=== PATIENT | male | born 1990 | race Caucasian/White ===

== ENCOUNTER 2018-02-20 08:56 | Observation (INO) | payer BC ==
[2018-02-20] MEDS ORDERED: Diphtheria,Pertussis(Acell),Tetanus Vaccine 0.5 ML Syringe IM ONE (09:10)
--- NOTE | 2018-02-20 09:13 | EDM.PDOC ---
ED HPI GENERAL MEDICAL PROBLEM - General Chief Complaint: General Stated Complaint: FELL DOWN STEPS Time Seen by Provider: 02/20/18 09:10 Source of Information: Reports: Patient - History of Present Illness INITIAL COMMENTS - FREE TEXT/NARRATIVE: HISTORY AND PHYSICAL: History of present illness: []Patient presents with history of falling downstairs per patient at 9 PM last night However his only injuries the right eye moderate swelling with laceration in the brow After being here in the ER patient complaining of left kidney pain he has history of defect as a child surgical repair, he now complains more of the left kidney pain them of the right eye pain No fever nausea vomiting chills sweats no chest pain shortness breath headache dizziness palpitation no bowel or urine symptoms denies loss of consciousness Review of systems: As per history of present illness and below otherwise all systems reviewed and negative. Past medical history: As per history of present illness and as reviewed below otherwise noncontributory. Surgical history: As per history of present illness and as reviewed below otherwise noncontributory. Social history: No reported history of drug or alcohol abuse. Family history: As per history of present illness and as reviewed below otherwise noncontributory. Physical exam: HEENT: Atraumatic, normocephalic, pupils reactive, negative for conjunctival pallor or scleral icterus, mucous membranes moist, throat clear, neck supple, nontender, trachea midline. Moderate swelling right eye and cheek area 2.5 cm linear laceration in the right brow Lungs: Clear to auscultation, breath sounds equal bilaterally, chest nontender. Heart: S1S2, regular, negative for clicks, rubs, or JVD. Abdomen: Soft, nondistended, nontender. Negative for masses or hepatosplenomegaly. Negative for costovertebral tenderness. Pelvis: Stable nontender. Genitourinary: Deferred. Rectal: Deferred. Extremities: Atraumatic, negative for cords or calf pain. Neurovascular unremarkable. Neuro: Awake, alert, oriented. Cranial nerves II through XII unremarkable. Cerebellum unremarkable. Motor and sensory unremarkable throughout. Exam nonfocal. Diagnostics: [Head CT, cervical CT, maxillofacial CT no contrast Chest 1 view pelvis 1 view pLane films UA , CBC CMP INR Retroperitoneal ultrasound Therapeutics: []tdap Morphine 2 mg IV 2 1 g of Rocephin IV Absence discussed patient with Dr. Boss, he will see the patient on Wednesday after swelling has gone down, the patient's call tomorrow and schedule the appointment with his office, Dr. Boss will then make arrangements accordingly if maxillofacial is further required. admitted for observation and pain control Impression: Flank pain//intractable pain [ contusion /hematoma right eye Superficial laceration 2.5 cm no sutures required Inferior orbital rim comminuted fracture Probable concussion ] Definitive disposition and diagnosis as appropriate pending reevaluation and review of above. Right Eye Pain Score (Numeric/FACES): 8 - Related Data Allergies Allergy/AdvReac Type Severity Reaction Status Date / Time No Known Allergies Allergy Verified 02/20/18 09:23 Home Meds: Home Meds . [No Known Home Meds] 02/20/18 [History] ED ROS GENERAL - Review of Systems Review Of Systems: See Below ED EXAM, GENERAL - Physical Exam Exam: See Below Course - Vital Signs Last Recorded V/S: Last Vital Signs Temp 98.8 F 02/20/18 09:04 Pulse 77 02/20/18 14:21 Resp 21 H 02/20/18 11:34 BP 136/75 02/20/18 14:21 Pulse Ox 98 02/20/18 11:34 - Orders/Labs/Meds Orders: Active Orders 24 hr Category Date Time Status Vaccines to be Administered [RC] PER UNIT ROUTINE Care 02/20/18 09:10 Active Abdomen Pelvis w Cont [CT] Stat Exams 02/20/18 13:09 Taken Cervical Spine wo Cont [CT] Stat Exams 02/20/18 09:09 Taken Chest 1V Frontal [CR] Stat Exams 02/20/18 09:09 Taken Head wo Cont [CT] Stat Exams 02/20/18 09:09 Taken Maxillofacial w/o CM [Max Facial Sinus wo Cont] [CT] Exams 02/20/18 09:10 Taken Stat Pelvis 1V or 2V [CR] Stat Exams 02/20/18 09:10 Taken Retroperitoneal Ltd [US] Stat Exams 02/20/18 11:27 Taken Labs: Laboratory Tests 02/20/18 02/20/18 02/20/18 Range/Units 09:37 10:05 10:05 WBC 10.31 (4.0-11.0) K/uL RBC 4.62 (4.50-5.90) M/uL Hgb 14.4 (13.0-17.0) g/dL Hct 40.6 (38.0-50.0) % MCV 87.9 (80.0-98.0) fL MCH 31.2 (27.0-32.0) pg MCHC 35.5 (31.0-37.0) g/dL RDW Std Deviation 40.3 (28.0-62.0) fl RDW Coeff of Li 13 (11.0-15.0) % Plt Count 269 (150-400) K/uL MPV 9.90 (7.40-12.00) fL Neut % (Auto) 80.7 H (48.0-80.0) % Lymph % (Auto) 13.0 L (16.0-40.0) % [place] % (Auto) 6.2 (0.0-15.0) % Eos % (Auto) 0.0 (0.0-7.0) % Baso % (Auto) 0.1 (0.0-1.5) % Neut # (Auto) 8.3 H (1.4-5.7) K/uL Lymph # (Auto) 1.3 (0.6-2.4) K/uL [place] # (Auto) 0.6 (0.0-0.8) K/uL Eos # (Auto) 0.0 (0.0-0.7) K/uL Baso # (Auto) 0.0 (0.0-0.1) K/uL Nucleated RBC % 0.0 /100WBC Nucleated RBCs # 0 K/uL INR 1.04 Sodium (136-148) mmol/L Potassium (3.5-5.1) mmol/L Chloride (98-107) mmol/L Carbon Dioxide (21.0-32.0) mmol/L BUN (7.0-18.0) mg/dL Creatinine (0.8-1.3) mg/dL Est Cr Clr Drug Dosing mL/min Estimated GFR (MDRD) ml/min Glucose (74-106) mg/dL Calcium (8.5-10.1) mg/dL Total Bilirubin (0.2-1.0) mg/dL AST (15-37) IU/L ALT (14-63) IU/L Alkaline Phosphatase (46-116) U/L Total Protein (6.4-8.2) g/dL Albumin (3.4-5.0) g/dL Globulin (2.0-3.5) g/dL Albumin/Globulin Ratio (1.3-2.8) Urine Color YELLOW Urine Appearance CLEAR Urine pH 8.5 H (5.0-8.0) Ur Specific [place] 1.020 (1.001-1.035) Urine Protein NEGATIVE (NEGATIVE) mg/dL Urine Glucose (UA) NEGATIVE (NEGATIVE) mg/dL Urine Ketones NEGATIVE (NEGATIVE) mg/dL Urine Occult Blood NEGATIVE (NEGATIVE) Urine Nitrite NEGATIVE (NEGATIVE) Urine Bilirubin NEGATIVE (NEGATIVE) Urine Urobilinogen 0.2 (<2.0) EU/dL Ur Leukocyte Esterase NEGATIVE (NEGATIVE) Urine RBC NONE SEEN (0-2/HPF) Urine WBC NONE SEEN (0-5/HPF) Ur Epithelial Cells RARE (NONE-FEW) Urine Bacteria NOT SEEN (NEGATIVE) 02/20/18 Range/Units 10:05 WBC (4.0-11.0) K/uL RBC (4.50-5.90) M/uL Hgb (13.0-17.0) g/dL Hct (38.0-50.0) % MCV (80.0-98.0) fL MCH (27.0-32.0) pg MCHC (31.0-37.0) g/dL RDW Std Deviation (28.0-62.0) fl RDW Coeff of Li (11.0-15.0) % Plt Count (150-400) K/uL MPV (7.40-12.00) fL Neut % (Auto) (48.0-80.0) % Lymph % (Auto) (16.0-40.0) % [place] % (Auto) (0.0-15.0) % Eos % (Auto) (0.0-7.0) % Baso % (Auto) (0.0-1.5) % Neut # (Auto) (1.4-5.7) K/uL Lymph # (Auto) (0.6-2.4) K/uL [place] # (Auto) (0.0-0.8) K/uL Eos # (Auto) (0.0-0.7) K/uL Baso # (Auto) (0.0-0.1) K/uL Nucleated RBC % /100WBC Nucleated RBCs # K/uL INR Sodium 141 (136-148) mmol/L Potassium 4.0 (3.5-5.1) mmol/L Chloride 106 (98-107) mmol/L Carbon Dioxide 26.6 (21.0-32.0) mmol/L BUN 11 (7.0-18.0) mg/dL Creatinine 0.9 (0.8-1.3) mg/dL Est Cr Clr Drug Dosing 140.56 mL/min Estimated GFR (MDRD) > 60.0 ml/min Glucose 115 H (74-106) mg/dL Calcium 8.9 (8.5-10.1) mg/dL Total Bilirubin 0.5 (0.2-1.0) mg/dL AST 34 (15-37) IU/L ALT 44 (14-63) IU/L Alkaline Phosphatase 56 (46-116) U/L Total Protein 7.2 (6.4-8.2) g/dL Albumin 4.2 (3.4-5.0) g/dL Globulin 3.0 (2.0-3.5) g/dL Albumin/Globulin Ratio 1.4 (1.3-2.8) Urine Color Urine Appearance Urine pH (5.0-8.0) Ur Specific [place] (1.001-1.035) Urine Protein (NEGATIVE) mg/dL Urine Glucose (UA) (NEGATIVE) mg/dL Urine Ketones (NEGATIVE) mg/dL Urine Occult Blood (NEGATIVE) Urine Nitrite (NEGATIVE) Urine Bilirubin (NEGATIVE) Urine Urobilinogen (<2.0) EU/dL Ur Leukocyte Esterase (NEGATIVE) Urine RBC (0-2/HPF) Urine WBC (0-5/HPF) Ur Epithelial Cells (NONE-FEW) Urine Bacteria (NEGATIVE) Meds: Medications Discontinued Medications Generic Name Dose Route Start Last Admin Trade Name Freq PRN Reason Stop Dose Admin Diphtheria/Tetanus/Acell Pertussis 0.5 ml 02/20/18 09:10 02/20/18 10:19 Adacel IM 02/20/18 09:11 0.5 ml .ONCE ONE Administration Hydromorphone HCl 1 mg 02/20/18 13:56 02/20/18 14:08 Dilaudid IVPUSH 02/20/18 13:57 1 mg ONETIME ONE Administration Ceftriaxone Sodium 1,000 mg/ 4 mls @ 4 mls/sec 02/20/18 11:51 02/20/18 12:22 Lidocaine HCl IM 02/20/18 11:52 4 mls/sec ONETIME ONE Administration Iopamidol 100 ml 02/20/18 13:47 02/20/18 13:48 Isovue Multipack-370 (76%) IVPUSH 02/20/18 13:48 100 ml ONETIME ONE Administration Morphine Sulfate 2 mg 02/20/18 10:23 02/20/18 10:34 Morphine IVPUSH 02/20/18 10:24 2 mg ONETIME ONE Administration Morphine Sulfate 2 mg 02/20/18 11:27 02/20/18 11:32 Morphine IVPUSH 02/20/18 11:28 2 mg ONETIME ONE Administration Ondansetron HCl 8 mg 02/20/18 10:03 02/20/18 10:19 Zofran IVPUSH 02/20/18 10:04 8 mg ONETIME ONE Administration Ondansetron HCl Confirm 02/20/18 10:13 02/20/18 10:21 Zofran Administered 02/20/18 10:14 Not Given Dose 4 mg .ROUTE .STK-MED ONE Departure - Departure Time of Disposition: 15:15 Disposition: Refer to Observation Condition: Fair Clinical Impression: Flank pain - Discharge Information Referrals: PCP,None [Primary Care Provider] - Forms: ED Department Discharge - My Orders Last 24 Hours: My Active Orders 02/20/18 09:09 Cervical Spine wo Cont [CT] Stat Chest 1V Frontal [CR] Stat Head wo Cont [CT] Stat 02/20/18 09:10 Vaccines to be Administered [RC] PER UNIT ROUTINE Maxillofacial w/o CM [Max Facial Sinus wo Cont] [CT] Stat Pelvis 1V or 2V [CR] Stat 02/20/18 11:27 Retroperitoneal Ltd [US] Stat 02/20/18 13:09 Abdomen Pelvis w Cont [CT] Stat - Assessment/Plan Last 24 Hours: My Active Orders 02/20/18 09:09 Cervical Spine wo Cont [CT] Stat Chest 1V Frontal [CR] Stat Head wo Cont [CT] Stat 02/20/18 09:10 Vaccines to be Administered [RC] PER UNIT ROUTINE Maxillofacial w/o CM [Max Facial Sinus wo Cont] [CT] Stat Pelvis 1V or 2V [CR] Stat 02/20/18 11:27 Retroperitoneal Ltd [US] Stat 02/20/18 13:09 Abdomen Pelvis w Cont [CT] Stat
[2018-02-20] MEDS ORDERED: Ondansetron 4 MG/2 ML SDV IVPUSH ONE (10:03)
[2018-02-20] MEDS ORDERED: Ondansetron 4 MG/2 ML SDV ONE (10:13)
[2018-02-20] MEDS ORDERED: Morphine 2 MG/ML Syringe IVPUSH ONE ×2 (10:23→11:27)
[2018-02-20 10:33] LABS: CHLORIDE,CL 106 mmol/L (98-107); SODIUM,NA 141 mmol/L (136-148)
[2018-02-20] MEDS ORDERED: cefTRIAXone 1,000 MG in Lidocaine 1% 4 ML IM ONE (11:51)
[2018-02-20] MEDS ORDERED: Iopamidol 755 MG/ML 200 ML Multipack Bottle IVPUSH ONE (13:47)
[2018-02-20] MEDS ORDERED: HYDROmorphone 2 MG/ML SDV IVPUSH ONE (13:56)
[2018-02-20] MEDS ORDERED: Docusate Sodium 100 MG Cap PO PRN (15:34)
[2018-02-20] MEDS ORDERED: Temazepam 15 MG Cap PO PRN (15:34)
[2018-02-20] MEDS ORDERED: Morphine 10 MG/ML Syringe IVPUSH PRN (15:34)
[2018-02-20] MEDS ORDERED: Ketorolac 30 MG/ML SDV IV PRN (15:34)
[2018-02-20] MEDS ORDERED: Polyethylene Glycol 3350 Powder 17 GM Packet PO PRN (15:34)
--- NOTE | 2018-02-20 16:01 | PCM.HP ---
<Bennie VargheseKadeem - Last Filed: 02/20/18 16:15> H&P History of Present Illness - General Date of Service: 02/20/18 Admit Problem/Dx: Admission Diagnosis/Problem Admission Diagnosis/Problem Intractable pain - History of Present Illness Initial Comments - Free Text/Narative: Cedric Green is a 27 y/o male with history of left kidney surgery who presented to the ER for left flank pain and right facial pain. The patient states he fell from stairs around 9pm. He denies getting punched. He rates the left flank pain as 10/10, somewhat improved with IV pain meds. He also has a right orbital hematoma. No intracranial bleeding. Denies any blurry vision, chest pain, dyspnea, abdominal pain. No dysuria. No pain anywhere else except for face and left flank area. CT facial shows the followin. Acute complete comminuted displaced fracture of the inferior right orbital rim. Two fracture fragments appear to be inferiorly displaced. 2. Possible entrapment of the rectus inferior muscle. Ophthalmologic evaluation is strongly recommended. 3. No other fractures are confidently identified. 4. Blood in the superior right maxillary sinus about the fracture. Large right facial hematoma in a periorbital and infraorbital distribution. Please note that all CT scans at this facility use dose modulation, iterative reconstruction, and/or weight-based dosing when appropriate to reduce radiation dose to as low as reasonably achievable. Patient was admitted for intractable pain needing IV pain medication. Right Eye Pain Score (Numeric/FACES): 8 - Related Data Allergies/Adverse Reactions: Allergies Allergy/AdvReac Type Severity Reaction Status Date / Time No Known Allergies Allergy Verified 02/20/18 09:23 Home Medications: Home Meds . 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 Exam - Exam Exam: See Below - Vital Signs Vital Signs: Last Vital Signs Temp 37.1 C 02/20/18 09:04 Pulse 77 02/20/18 14:21 Resp 21 H 02/20/18 11:34 BP 136/75 02/20/18 14:21 Pulse Ox 98 02/20/18 11:34 Weight: 210 kg - Exam General: Alert, Oriented HEENT: Other (large right periorbital hematoma. ) Lungs: Clear to Auscultation, Normal Respiratory Effort. No: Crackles, Wheezing Cardiovascular: Regular Rate, Regular Rhythm GI/Abdominal Exam: Normal Bowel Sounds, Soft, Non-Tender, No Distention Back Exam: CVA Tenderness (L) Extremities: Normal Inspection, Non-Tender, No Pedal Edema Skin: Warm, Dry Neurological: Cranial Nerves Intact, Other (unable to fully open right eyelids due to swelling.) - Patient Data Lab Results Last 24 hrs: Laboratory Results - last 24 hr 02/20/18 02/20/18 02/20/18 Range/Units 09:37 10:05 10:05 WBC 10.31 (4.0-11.0) K/uL RBC 4.62 (4.50-5.90) M/uL Hgb 14.4 (13.0-17.0) g/dL Hct 40.6 (38.0-50.0) % MCV 87.9 (80.0-98.0) fL MCH 31.2 (27.0-32.0) pg MCHC 35.5 (31.0-37.0) g/dL RDW Std Deviation 40.3 (28.0-62.0) fl RDW Coeff of Li 13 (11.0-15.0) % Plt Count 269 (150-400) K/uL MPV 9.90 (7.40-12.00) fL Neut % (Auto) 80.7 H (48.0-80.0) % Lymph % (Auto) 13.0 L (16.0-40.0) % [place] % (Auto) 6.2 (0.0-15.0) % Eos % (Auto) 0.0 (0.0-7.0) % Baso % (Auto) 0.1 (0.0-1.5) % Neut # (Auto) 8.3 H (1.4-5.7) K/uL Lymph # (Auto) 1.3 (0.6-2.4) K/uL [place] # (Auto) 0.6 (0.0-0.8) K/uL Eos # (Auto) 0.0 (0.0-0.7) K/uL Baso # (Auto) 0.0 (0.0-0.1) K/uL Nucleated RBC % 0.0 /100WBC Nucleated RBCs # 0 K/uL INR 1.04 Sodium (136-148) mmol/L Potassium (3.5-5.1) mmol/L Chloride (98-107) mmol/L Carbon Dioxide (21.0-32.0) mmol/L BUN (7.0-18.0) mg/dL Creatinine (0.8-1.3) mg/dL Est Cr Clr Drug Dosing mL/min Estimated GFR (MDRD) ml/min Glucose (74-106) mg/dL Calcium (8.5-10.1) mg/dL Total Bilirubin (0.2-1.0) mg/dL AST (15-37) IU/L ALT (14-63) IU/L Alkaline Phosphatase (46-116) U/L Total Protein (6.4-8.2) g/dL Albumin (3.4-5.0) g/dL Globulin (2.0-3.5) g/dL Albumin/Globulin Ratio (1.3-2.8) Urine Color YELLOW Urine Appearance CLEAR Urine pH 8.5 H (5.0-8.0) Ur Specific [place] 1.020 (1.001-1.035) Urine Protein NEGATIVE (NEGATIVE) mg/dL Urine Glucose (UA) NEGATIVE (NEGATIVE) mg/dL Urine Ketones NEGATIVE (NEGATIVE) mg/dL Urine Occult Blood NEGATIVE (NEGATIVE) Urine Nitrite NEGATIVE (NEGATIVE) Urine Bilirubin NEGATIVE (NEGATIVE) Urine Urobilinogen 0.2 (<2.0) EU/dL Ur Leukocyte Esterase NEGATIVE (NEGATIVE) Urine RBC NONE SEEN (0-2/HPF) Urine WBC NONE SEEN (0-5/HPF) Ur Epithelial Cells RARE (NONE-FEW) Urine Bacteria NOT SEEN (NEGATIVE) 09/30/18 Range/Units 10:05 WBC (4.0-11.0) K/uL RBC (4.50-5.90) M/uL Hgb (13.0-17.0) g/dL Hct (38.0-50.0) % MCV (80.0-98.0) fL MCH (27.0-32.0) pg MCHC (31.0-37.0) g/dL RDW Std Deviation (28.0-62.0) fl RDW Coeff of Li (11.0-15.0) % Plt Count (150-400) K/uL MPV (7.40-12.00) fL Neut % (Auto) (48.0-80.0) % Lymph % (Auto) (16.0-40.0) % [place] % (Auto) (0.0-15.0) % Eos % (Auto) (0.0-7.0) % Baso % (Auto) (0.0-1.5) % Neut # (Auto) (1.4-5.7) K/uL Lymph # (Auto) (0.6-2.4) K/uL [place] # (Auto) (0.0-0.8) K/uL Eos # (Auto) (0.0-0.7) K/uL Baso # (Auto) (0.0-0.1) K/uL Nucleated RBC % /100WBC Nucleated RBCs # K/uL INR Sodium 141 (136-148) mmol/L Potassium 4.0 (3.5-5.1) mmol/L Chloride 106 (98-107) mmol/L Carbon Dioxide 26.6 (21.0-32.0) mmol/L BUN 11 (7.0-18.0) mg/dL Creatinine 0.9 (0.8-1.3) mg/dL Est Cr Clr Drug Dosing 140.56 mL/min Estimated GFR (MDRD) > 60.0 ml/min Glucose 115 H (74-106) mg/dL Calcium 8.9 (8.5-10.1) mg/dL Total Bilirubin 0.5 (0.2-1.0) mg/dL AST 34 (15-37) IU/L ALT 44 (14-63) IU/L Alkaline Phosphatase 56 (46-116) U/L Total Protein 7.2 (6.4-8.2) g/dL Albumin 4.2 (3.4-5.0) g/dL Globulin 3.0 (2.0-3.5) g/dL Albumin/Globulin Ratio 1.4 (1.3-2.8) Urine Color Urine Appearance Urine pH (5.0-8.0) Ur Specific [place] (1.001-1.035) Urine Protein (NEGATIVE) mg/dL Urine Glucose (UA) (NEGATIVE) mg/dL Urine Ketones (NEGATIVE) mg/dL Urine Occult Blood (NEGATIVE) Urine Nitrite (NEGATIVE) Urine Bilirubin (NEGATIVE) Urine Urobilinogen (<2.0) EU/dL Ur Leukocyte Esterase (NEGATIVE) Urine RBC (0-2/HPF) Urine WBC (0-5/HPF) Ur Epithelial Cells (NONE-FEW) Urine Bacteria (NEGATIVE) Result Diagrams: 02/20/18 10:05 02/20/18 10:05 Problem List Initiated/Reviewed/Updated: Yes Orders Last 24hrs: Active Orders 24 hr Category Date Time Status Admission Status [Patient Status] [ADT] Stat ADT 02/20/18 15:16 Active Patient Status [ADT] Routine ADT 02/20/18 15:34 Ordered Oxygen Therapy [RC] PRN Care 02/20/18 15:34 Ordered Up ad Marta [RC] ASDIRECTED Care 02/20/18 15:34 Ordered VTE/DVT Education [RC] PER UNIT ROUTINE Care 02/20/18 15:34 Ordered Vaccines to be Administered [RC] PER UNIT ROUTINE Care 02/20/18 09:10 Active Vital Signs [RC] Q8HR Care 02/20/18 15:34 Ordered Regular Diet [DIET] Diet 02/20/18 Dinner Ordered Abdomen Pelvis w Cont [CT] Stat Exams 02/20/18 13:09 Taken Cervical Spine wo Cont [CT] Stat Exams 02/20/18 09:09 Taken Chest 1V Frontal [CR] Stat Exams 02/20/18 09:09 Taken Head wo Cont [CT] Stat Exams 02/20/18 09:09 Taken Maxillofacial w/o CM [Max Facial Sinus wo Cont] [CT] Exams 02/20/18 09:10 Taken Stat Pelvis 1V or 2V [CR] Stat Exams 02/20/18 09:10 Taken Retroperitoneal Ltd [US] Stat Exams 02/20/18 11:27 Taken Docusate Sodium [Colace] Med 02/20/18 15:34 Ordered 100 mg PO BID PRN HYDROmorphone [Dilaudid] Med 02/20/18 15:42 Ordered 1 mg IV Q4H PRN Polyethylene Glycol 3350 [MiraLAX] Med 02/20/18 15:34 Ordered 17 gm PO DAILY PRN Temazepam [Restoril] Med 02/20/18 15:34 Ordered 15 mg PO BEDTIME PRN Sequential Compression Device [OM.PC] Per Unit Routine Oth 02/20/18 15:38 Ordered Resuscitation Status Routine Resus Stat 02/20/18 15:34 Ordered Medication Orders Docusate Sodium (Colace) 100 mg PO BID PRN PRN Reason: Constipation Hydromorphone HCl (Dilaudid) 1 mg IV Q4H PRN PRN Reason: Pain Polyethylene Glycol (Miralax) 17 gm PO DAILY PRN PRN Reason: Constipation Temazepam (Restoril) 15 mg PO BEDTIME PRN PRN Reason: Sleep Assessment/Plan Comment:: 1. Left CVA tenderness 2/2 chronic hydronephrosis and recent trauma. Order cold pack placement. Dilaudid 1mg IV Q4H PRN. 2. Comminuted displaced fracture of the right inferior orbital rim. Will order cold pack placement. In addition, Dilaudid 1mg IV Q4H PRN for pain. Patient will follow-up with ophthalmology on Wednesday02/23/18. Dispo: plan for tomorrow. <Koby Banuelos - Last Filed: 02/20/18 16:30> H&P History of Present Illness - General Admit Problem/Dx: Admission Diagnosis/Problem Admission Diagnosis/Problem Intractable pain I have seen and examined the patient independent of medical records manager. The patient is a 27-year-old gentleman who had been admitted through the emergency department primarily for intractable facial pain. The patient reports that he had fallen yesterday evening. CT exam of the patient's face had shown acute complete comminuted displaced fracture of the inferior right orbital rim. 2 fracture fragments appear to have been inferiorly displaced. Ophthalmology had been consulted and will see the patient as an outpatient in 3 days after swelling has improved somewhat. The patient had been admitted to observation secondary to intractable pain. The patient has a history of left-sided flank pain along with previous left kidney surgery. I have reviewed and agree with the resident's assessment and plan of care. Please see order. Exam - Vital Signs Vital Signs: Last Vital Signs Temp 37.1 C 02/20/18 09:04 Pulse 77 02/20/18 14:21 Resp 21 H 02/20/18 11:34 BP 136/75 02/20/18 14:21 Pulse Ox 98 02/20/18 11:34 - Patient Data Lab Results Last 24 hrs: Laboratory Results - last 24 hr 02/20/18 02/20/18 02/20/18 Range/Units 09:37 10:05 10:05 WBC 10.31 (4.0-11.0) K/uL RBC 4.62 (4.50-5.90) M/uL Hgb 14.4 (13.0-17.0) g/dL Hct 40.6 (38.0-50.0) % MCV 87.9 (80.0-98.0) fL MCH 31.2 (27.0-32.0) pg MCHC 35.5 (31.0-37.0) g/dL RDW Std Deviation 40.3 (28.0-62.0) fl RDW Coeff of Li 13 (11.0-15.0) % Plt Count 269 (150-400) K/uL MPV 9.90 (7.40-12.00) fL Neut % (Auto) 80.7 H (48.0-80.0) % Lymph % (Auto) 13.0 L (16.0-40.0) % [place] % (Auto) 6.2 (0.0-15.0) % Eos % (Auto) 0.0 (0.0-7.0) % Baso % (Auto) 0.1 (0.0-1.5) % Neut # (Auto) 8.3 H (1.4-5.7) K/uL Lymph # (Auto) 1.3 (0.6-2.4) K/uL [place] # (Auto) 0.6 (0.0-0.8) K/uL Eos # (Auto) 0.0 (0.0-0.7) K/uL Baso # (Auto) 0.0 (0.0-0.1) K/uL Nucleated RBC % 0.0 /100WBC Nucleated RBCs # 0 K/uL INR 1.04 Sodium (136-148) mmol/L Potassium (3.5-5.1) mmol/L Chloride (98-107) mmol/L Carbon Dioxide (21.0-32.0) mmol/L BUN (7.0-18.0) mg/dL Creatinine (0.8-1.3) mg/dL Est Cr Clr Drug Dosing mL/min Estimated GFR (MDRD) ml/min Glucose (74-106) mg/dL Calcium (8.5-10.1) mg/dL Total Bilirubin (0.2-1.0) mg/dL AST (15-37) IU/L ALT (14-63) IU/L Alkaline Phosphatase (46-116) U/L Total Protein (6.4-8.2) g/dL Albumin (3.4-5.0) g/dL Globulin (2.0-3.5) g/dL Albumin/Globulin Ratio (1.3-2.8) Urine Color YELLOW Urine Appearance CLEAR Urine pH 8.5 H (5.0-8.0) Ur Specific [place] 1.020 (1.001-1.035) Urine Protein NEGATIVE (NEGATIVE) mg/dL Urine Glucose (UA) NEGATIVE (NEGATIVE) mg/dL Urine Ketones NEGATIVE (NEGATIVE) mg/dL Urine Occult Blood NEGATIVE (NEGATIVE) Urine Nitrite NEGATIVE (NEGATIVE) Urine Bilirubin NEGATIVE (NEGATIVE) Urine Urobilinogen 0.2 (<2.0) EU/dL Ur Leukocyte Esterase NEGATIVE (NEGATIVE) Urine RBC NONE SEEN (0-2/HPF) Urine WBC NONE SEEN (0-5/HPF) Ur Epithelial Cells RARE (NONE-FEW) Urine Bacteria NOT SEEN (NEGATIVE) 02/20/18 Range/Units 10:05 WBC (4.0-11.0) K/uL RBC (4.50-5.90) M/uL Hgb (13.0-17.0) g/dL Hct (38.0-50.0) % MCV (80.0-98.0) fL MCH (27.0-32.0) pg MCHC (31.0-37.0) g/dL RDW Std Deviation (28.0-62.0) fl RDW Coeff of Li (11.0-15.0) % Plt Count (150-400) K/uL MPV (7.40-12.00) fL Neut % (Auto) (48.0-80.0) % Lymph % (Auto) (16.0-40.0) % [place] % (Auto) (0.0-15.0) % Eos % (Auto) (0.0-7.0) % Baso % (Auto) (0.0-1.5) % Neut # (Auto) (1.4-5.7) K/uL Lymph # (Auto) (0.6-2.4) K/uL [place] # (Auto) (0.0-0.8) K/uL Eos # (Auto) (0.0-0.7) K/uL Baso # (Auto) (0.0-0.1) K/uL Nucleated RBC % /100WBC Nucleated RBCs # K/uL INR Sodium 141 (136-148) mmol/L Potassium 4.0 (3.5-5.1) mmol/L Chloride 106 (98-107) mmol/L Carbon Dioxide 26.6 (21.0-32.0) mmol/L BUN 11 (7.0-18.0) mg/dL Creatinine 0.9 (0.8-1.3) mg/dL Est Cr Clr Drug Dosing 140.56 mL/min Estimated GFR (MDRD) > 60.0 ml/min Glucose 115 H (74-106) mg/dL Calcium 8.9 (8.5-10.1) mg/dL Total Bilirubin 0.5 (0.2-1.0) mg/dL AST 34 (15-37) IU/L ALT 44 (14-63) IU/L Alkaline Phosphatase 56 (46-116) U/L Total Protein 7.2 (6.4-8.2) g/dL Albumin 4.2 (3.4-5.0) g/dL Globulin 3.0 (2.0-3.5) g/dL Albumin/Globulin Ratio 1.4 (1.3-2.8) Urine Color Urine Appearance Urine pH (5.0-8.0) Ur Specific [place] (1.001-1.035) Urine Protein (NEGATIVE) mg/dL Urine Glucose (UA) (NEGATIVE) mg/dL Urine Ketones (NEGATIVE) mg/dL Urine Occult Blood (NEGATIVE) Urine Nitrite (NEGATIVE) Urine Bilirubin (NEGATIVE) Urine Urobilinogen (<2.0) EU/dL Ur Leukocyte Esterase (NEGATIVE) Urine RBC (0-2/HPF) Urine WBC (0-5/HPF) Ur Epithelial Cells (NONE-FEW) Urine Bacteria (NEGATIVE) Result Diagrams: 02/20/18 10:05 02/20/18 10:05 Orders Last 24hrs: Active Orders 24 hr Category Date Time Status Admission Status [Patient Status] [ADT] Stat ADT 02/20/18 15:16 Active Patient Status [ADT] Routine ADT 02/20/18 15:34 Active Oxygen Therapy [RC] PRN Care 02/20/18 15:34 Active Up ad Marta [RC] ASDIRECTED Care 02/20/18 15:34 Active VTE/DVT Education [RC] PER UNIT ROUTINE Care 02/20/18 15:34 Active Vaccines to be Administered [RC] PER UNIT ROUTINE Care 02/20/18 09:10 Active Vital Signs [RC] Q8HR Care 02/20/18 15:34 Active Regular Diet [DIET] Diet 02/20/18 Dinner Active Abdomen Pelvis w Cont [CT] Stat Exams 02/20/18 13:09 Taken Cervical Spine wo Cont [CT] Stat Exams 02/20/18 09:09 Taken Chest 1V Frontal [CR] Stat Exams 02/20/18 09:09 Taken Head wo Cont [CT] Stat Exams 02/20/18 09:09 Taken Maxillofacial w/o CM [Max Facial Sinus wo Cont] [CT] Exams 02/20/18 09:10 Taken Stat Pelvis 1V or 2V [CR] Stat Exams 02/20/18 09:10 Taken Retroperitoneal Ltd [US] Stat Exams 02/20/18 11:27 Taken DRUG SCREEN, URINE [URCHEM] Routine Lab 02/20/18 16:07 Ordered Docusate Sodium [Colace] Med 02/20/18 15:34 Active 100 mg PO BID PRN HYDROmorphone [Dilaudid] Med 02/20/18 15:42 Active 1 mg IV Q4H PRN Polyethylene Glycol 3350 [MiraLAX] Med 02/20/18 15:34 Active 17 gm PO DAILY PRN Temazepam [Restoril] Med 02/20/18 15:34 Active 15 mg PO BEDTIME PRN Ice Pack [Ice Therapy] [OM.PC] Routine Oth 02/20/18 16:12 Ordered Sequential Compression Device [OM.PC] Per Unit Routine Oth 02/20/18 15:38 Ordered Resuscitation Status Routine Resus Stat 02/20/18 15:34 Ordered Medication Orders Docusate Sodium (Colace) 100 mg PO BID PRN PRN Reason: Constipation Hydromorphone HCl (Dilaudid) 1 mg IV Q4H PRN PRN Reason: Pain Last Admin: 02/20/18 16:27 Dose: 1 mg Polyethylene Glycol (Miralax) 17 gm PO DAILY PRN PRN Reason: Constipation Temazepam (Restoril) 15 mg PO BEDTIME PRN PRN Reason: Sleep
[2018-02-20] MEDS: HYDROmorphone 2 MG/ML SDV IV PRN ×2 (16:27→20:46)
[2018-02-20] MEDS ORDERED: Acetaminophen/oxyCODONE 325-5 MG Tab PO PRN (17:25)
[2018-02-20] MEDS: Ketorolac 30 MG/ML SDV IVPUSH PRN (17:51)
[2018-02-21] MEDS: Ketorolac 30 MG/ML SDV IVPUSH PRN (02:01)
[2018-02-21] MEDS: HYDROmorphone 2 MG/ML SDV IV PRN ×2 (07:42→11:13)
--- NOTE | 2018-02-21 11:44 | PCM.DCSUM1 ---
Discharge Summary - Hospital Course Free Text/Narrative:: Admission date: 02/20/18 Discharge date: 02/21/18 Admission diagnosis: 1. Intractable pain needing IV pain control 2. Right face contussion Discharge diagnosis: 1. Pain, improved 2. Comminuted fracture of the inferior right orbital rim Procedures: none Consults: none Hospital course: Cedric Green is a 27 y/o male who presented to the ER complaining of worsening right facial and left flank pain. The patient had supposedly fallen and hit his face. He was admitted for pain control due to the intractable pain. His pain improved overnight and the facial swelling also improved. A CT face was performed which showed a comminuted fracture of the inferior right orbital rim. He was set up with ophthalmology who will see the patient on 02/23/18. The patient was instructed to follow-up with ophthalmology. In addition, he was prescribed Tramadol 50 mg PO Q12H PRN, dispensed 14 tablets for pain control. In addition, he was advise to apply a cold pack to right face and take ibuprofen for swelling control. Follow-up: Ophthalmology on Wednesday, 2017. - Discharge Data Discharge Date: 02/21/18 Discharge Disposition: Home, Self-Care 01 Condition: Fair - Patient Instructions Diet: Regular Diet as Tolerated Activity: Apply Ice, As Tolerated Notify Provider of: Fever, Increased Pain, Swelling and Redness, Drainage, Nausea and/or Vomiting - Discharge Plan *PRESCRIPTION DRUG MONITORING PROGRAM REVIEWED*: Not Applicable *COPY OF PRESCRIPTION DRUG MONITORING REPORT IN PATIENT ROBBI: Not Applicable Home Medications: Home Meds . [No Known Home Meds] 02/20/18 [History] Patient Handouts: Flank Pain, Adult, [id number] Referrals: [facility] [Outside] (Follow-up Scheduled with Dr. Boss on 02/24/18 at 0745.) - Discharge Summary/Plan Comment DC Time >30 min.: No - Patient Data Vitals - Most Recent: Last Vital Signs Temp 35.1 C L 02/21/18 07:41 Pulse 61 02/21/18 07:41 Resp 12 02/21/18 07:41 BP 123/61 02/21/18 07:41 Pulse Ox 97 02/21/18 07:41 Weight - Most Recent: 210 kg I&O - Last 24 hours: Intake & Output 02/20/18 02/21/18 02/21/18 22:59 06:59 14:59 Intake Total 240 1800 Output Total 1200 Balance 240 600 Lab Results - Last 24 hrs: Laboratory Results - last 24 hr 02/20/18 Range/Units 09:37 Urine Opiates Screen NEGATIVE (NEGATIVE) Ur Oxycodone Screen NEGATIVE (NEGATIVE) Urine Methadone Screen NEGATIVE (NEGATIVE) Ur Barbiturates Screen NEGATIVE (NEGATIVE) Ur Phencyclidine Scrn NEGATIVE (NEGATIVE) Ur Amphetamine Screen NEGATIVE (NEGATIVE) U Methamphetamines Scrn NEGATIVE (NEGATIVE) U Benzodiazepines Scrn NEGATIVE (NEGATIVE) U Cocaine Metab Screen NEGATIVE (NEGATIVE) U Marijuana (THC) Screen POSITIVE (NEGATIVE) Med Orders - Current: Current Medications Docusate Sodium (Colace) 100 mg PO BID PRN PRN Reason: Constipation Hydromorphone HCl (Dilaudid) 1 mg IV Q4H PRN PRN Reason: Pain Last Admin: 02/21/18 11:13 Dose: 1 mg Ketorolac Tromethamine (Toradol) 30 mg IVPUSH Q6H PRN PRN Reason: Pain Stop: 02/25/18 17:28 Last Admin: 02/21/18 02:01 Dose: 30 mg Oxycodone/Acetaminophen (Percocet 325-5 Mg) 1 tab PO Q6H PRN PRN Reason: Pain Last Admin: 02/20/18 19:47 Dose: 1 tab Polyethylene Glycol (Miralax) 17 gm PO DAILY PRN PRN Reason: Constipation Temazepam (Restoril) 15 mg PO BEDTIME PRN PRN Reason: Sleep Last Admin: 02/20/18 20:47 Dose: 15 mg Discontinued Medications Diphtheria/Tetanus/Acell Pertussis (Adacel) 0.5 ml IM .ONCE ONE Stop: 02/20/18 09:11 Last Admin: 02/20/18 10:19 Dose: 0.5 ml Hydromorphone HCl (Dilaudid) 1 mg IVPUSH ONETIME ONE Stop: 02/20/18 13:57 Last Admin: 02/20/18 14:08 Dose: 1 mg Ceftriaxone Sodium 1,000 mg/ (Lidocaine HCl) 4 mls @ 4 mls/sec IM ONETIME ONE Stop: 02/20/18 11:52 Last Admin: 02/20/18 12:22 Dose: 4 mls/sec Iopamidol (Isovue Multipack-370 (76%)) 100 ml IVPUSH ONETIME ONE Stop: 02/20/18 13:48 Last Admin: 02/20/18 13:48 Dose: 100 ml Ketorolac Tromethamine (Toradol) 30 mg IV Q6H PRN PRN Reason: Pain (moderate 4-6) Morphine Sulfate (Morphine) 2 mg IVPUSH ONETIME ONE Stop: 02/20/18 10:24 Last Admin: 02/20/18 10:34 Dose: 2 mg Morphine Sulfate (Morphine) 2 mg IVPUSH ONETIME ONE Stop: 02/20/18 11:28 Last Admin: 02/20/18 11:32 Dose: 2 mg Morphine Sulfate (Morphine) 5 mg IVPUSH Q2H PRN PRN Reason: Pain (severe 7-10) Stop: 02/21/18 15:39 Ondansetron HCl (Zofran) 8 mg IVPUSH ONETIME ONE Stop: 02/20/18 10:04 Last Admin: 02/20/18 10:19 Dose: 8 mg Ondansetron HCl (Zofran) Confirm Administered Dose 4 mg .ROUTE .STK-MED ONE Stop: 02/20/18 10:14 Last Admin: 02/20/18 10:21 Dose: Not Given
--- NOTE | 2018-02-21 18:06 | CR ---
EXAM DATE: 02/20/18 PATIENT'S AGE: 27 Patient: SANDY GARSIA Facility: [place], [place] Site . Site : 1990 Study: XRay Chest [id number]/30/2018 9:27:41 AM Ordering Physician: Doctor Zuniga Final Report: INDICATION: Pain. Shortness of breath. TECHNIQUE: PA chest. TECHNIQUE: None. FINDINGS: Clear lungs. Normal heart size and pulmonary vascularity. The included skeletal thorax is within normal limits. IMPRESSION: Negative PA chest. Dictated by Koby Palomo MD @ Feb 20 2018 9:54AM (Electronic Signature) Report Signed by Proxy. [facility]
--- NOTE | 2018-02-21 18:07 | CR ---
EXAM DATE: 02/20/18 PATIENT'S AGE: 27 Patient: SANDY GARSIA Facility: [place], [place] Site . Site : 1990 Study: XRay Pelvis [id number]/30/2018 9:31:20 AM Ordering Physician: Doctor Zuniga Final Report: INDICATION: Pain. TECHNIQUE: Two views of the pelvis. FINDINGS: No acute pelvic or hip fracture or dislocation identified. Symmetric sacroiliac joints. The symphysis pubis is within normal limits. Normal hip joints. There is a surgical clip projected over the left lower quadrant. Calcified pelvic phlebolith on the right. Impression : Negative pelvis and hips. Dictated by Koby Palomo MD @ Feb 20 2018 9:55AM (Electronic Signature) Report Signed by Proxy. [facility]
--- NOTE | 2018-02-21 18:10 | CT ---
EXAM DATE: 02/20/18 PATIENT'S AGE: 27 Patient: SANDY GARSIA Facility: [place], [place] Site . Site : 1990 Study: CT Head wo cont [id number]/30/2018 9:34:01 AM Ordering Physician: Doctor Zuniga Final Report: INDICATION: Trauma. The patient fell down the stairs striking his face. TECHNIQUE: Noncontrast head CT. FINDINGS: There is no evidence for acute intracranial hemorrhage or hydrocephalus and no mass effect or shift of midline structures. No evidence for ischemic change or infarction. The calvarium and skull base are negative for fractures. However there is likely a fracture of the inferior right orbital rim incompletely visualized on this study. Consider a facial bone CT for further characterization. There is there is an acute large hematoma overlying the right side of the face/ right periorbital region orbit superiorly, inferiorly, and laterally and extending along the nasal bridge. IMPRESSION: 1. Large hematoma right christin orbital region. There is likely a fracture of the inferior orbital wall. A facial bone CT is suggested for further characterization. 2. There is no evidence for acute intracranial hemorrhage or hydrocephalus. 3. No calvarial or skullbase fracture. Please note that all CT scans at this facility use dose modulation, iterative reconstruction, and/or weight-based dosing when appropriate to reduce radiation dose to as low as reasonably achievable. Dictated by Koby Palomo MD @ Feb 20 2018 9:56AM (Electronic Signature) Report Signed by Proxy. [facility] HOSPITALMelanie
--- NOTE | 2018-02-21 18:11 | CT ---
EXAM DATE: 02/20/18 PATIENT'S AGE: 27 Patient: SANDY GARSIA Facility: [place], [place] Site . Site : 1990 Study: CT Spine Cervical WO CONT [id number]/30/2018 9:35:21 AM Ordering Physician: Doctor Zuniga Final Report: INDICATION: 27 year-old male. Trauma. The patient fell down stairs last night. Right christin orbital hematoma. Possible facial bone fracture. TECHNIQUE: Axial CT of the cervical spine with coronal and sagittal reconstructed images. Bone and soft tissue algorithms utilized. FINDINGS: There are 7 cervical vertebral bodies without fractures. No prevertebral hematomas identified. Loss of the cervical lordosis is likely positional. Included skull base is negative for fractures. The included mastoid air cells are clear. The internal artery canals are symmetric and intact. The included temporomandibular joints are symmetric and intact. The included lung apices are clear. The included medial clavicular heads are within normal limits. IMPRESSION: No acute cervical spine fracture or acute malalignment. No prevertebral hematomas. Straightening of the normal cervical lordosis is almost certainly on a positional basis. Please note that all CT scans at this facility use dose modulation, iterative reconstruction, and/or weight-based dosing when appropriate to reduce radiation dose to as low as reasonably achievable. Dictated by Koby Palomo MD @ Feb 20 2018 10:17AM (Electronic Signature) Report Signed by Proxy. IL[facility]
--- NOTE | 2018-02-21 18:12 | CT ---
EXAM DATE: 02/20/18 PATIENT'S AGE: 27 Patient: SANDY GARSIA Facility: [place], [place] Site . Site : 1990 Study: CT Facial WO CONT [id number]/30/2018 9:40:10 AM Ordering Physician: Doctor Zuniga Final Report: INDICATION: Trauma. The patient fell on his face last night. Right christin orbital hematoma. Facial pain. Facial bone fracture. TECHNIQUE: Axial CT of the facial bones with coronal and sagittal reconstructed images. Bone and soft tissue algorithms utilized. COMPARISON: Correlation is made with a CT of the head and cervical spine from the same date. FINDINGS: There is a comminuted fracture of the inferior right orbital rim with displacement of 2 of the fracture fragments inferiorly. Additionally there is apparent entrapment or least displacement of the inferior orbital rectus muscle below the expected location of the orbital rim. This could reflect entrapment of this muscle. Ophthalmologic evaluation is recommended. There is small amount of hemorrhage about this fracture site. Mucosal thickening within the maxillary sinuses inferiorly. No other fractures are confidently identified. There is a large hematoma overlying the right christin orbital region and maxilla extending inferolaterally in superior laterally. IMPRESSION: 1. Acute complete comminuted displaced fracture of the inferior right orbital rim. Two fracture fragments appear to be inferiorly displaced. 2. Possible entrapment of the rectus inferior muscle. Ophthalmologic evaluation is strongly recommended. 3. No other fractures are confidently identified. 4. Blood in the superior right maxillary sinus about the fracture. Large right facial hematoma in a periorbital and infraorbital distribution. Please note that all CT scans at this facility use dose modulation, iterative reconstruction, and/or weight-based dosing when appropriate to reduce radiation dose to as low as reasonably achievable. Dictated by Koby Palomo MD @ Feb 20 2018 10:33AM (Electronic Signature) Report Signed by Proxy. ILSA
--- NOTE | 2018-02-21 18:42 | US ---
EXAM DATE: 02/20/18 PATIENT'S AGE: 27 Patient: SANDY GARSIA Facility: [place], [place] Site . Site : 1990 Study: US Abdomen RENAL [id number]/30/2018 12:29:37 PM Ordering Physician: Kendra Roe Final Report: INDICATION: Fell down stairs. Left flank pain. FINDINGS: Renal and bladder ultrasound was performed. The right kidney measures 10.7 x 3.8 x 4.2 cm. There is no right hydronephrosis or mass in the right kidney. The left kidney is enlarged measuring 16.0 x 11.1 cm. There is an abnormal appearance of the left kidney with difficulty discerning the left renal cortex from fluid. And injury to the left kidney cannot be excluded. The urinary bladder is unremarkable. There is appearance of bilateral ureteral jets. IMPRESSION: Enlarged markedly abnormal appearing left kidney. This could be secondary to a renal injury. Recommend CT scan of the abdomen and pelvis with contrast for further evaluation. Unremarkable right kidney and urinary bladder. Dictated by Fracisco Turner MD @ 02/20/2018 1:01:13 PM Dictated by: Fracisco Turner MD @ 02/20/2018 13:01:21 (Electronic Signature) Report Signed by Proxy. ILSA
--- NOTE | 2018-02-21 18:51 | CT ---
EXAM DATE: 02/20/18 PATIENT'S AGE: 27 Patient: SANDY GARSIA Facility: [place], [place] Site . Site : 1990 Study: CT Abdomen/Pelvis W CONT [id number]/30/2018 1:46:43 PM Ordering Physician: Kendra Roe Final Report: INDICATION: Patient fell down the stairs last night; now having extremely severe kidney pain on the left; history of left kidney surgery. COMPARISON: Ultrasound examination of the kidneys February 20, 2018. TECHNIQUE: CT abdomen and pelvis with intravenous contrast; coronal and sagittal reformats. FINDINGS: No abnormal intra pulmonary nodular densities through the lung bases. No evidence of pleural effusion. Normal size cardiac silhouette without any evidence of pericardial effusion. No focal hepatic or splenic pathology. No pancreatic pathology. Gallbladder is unremarkable. No adrenal pathology. 1 cm benign cyst interpolar region right kidney. No obstructive uropathy or perinephric pathology involving the right kidney. No kidneys stones identified on the right side. The right kidney is measuring 12.2 cm in maximum vertical dimension with normal thickness of the right renal cortex. Marked hydronephrosis left kidney with relatively thinned renal parenchyma on the left side. The left kidney is measuring 16.2 cm in the maximum vertical dimension. Marked dilatation of the left renal pelvis. No evidence of dilatation of the left ureter. No retroperitoneal lymphadenopathy. No evidence of abdominal or pelvic ascites. Surgical clips identified in surrounding the left kidney and the left renal pelvis. Normal appendix. CT study of the pelvis is unremarkable. Impression : Severe Hydronephrotic left kidney with markedly dilated left renal pelvis indicating ureteropelvic junction obstruction on a chronic basis. 1. Surgical clips surrounding the kidney and left renal pelvis. 2. Small benign cyst right kidney. 3. No kidneys stones on either side. 4. Normal appendix. 5. Negative CT abdomen and pelvis with intravenous contrast otherwise. Please note that all CT scans at this facility use dose modulation, iterative reconstruction, and/or weight-based dosing when appropriate to reduce radiation dose to as low as reasonably achievable. Dictated by Alia Brewer MD @ Feb 20 2018 2:25PM (Electronic Signature) Report Signed by Proxy. [facility]OSPITALMelanie
== END 2018-02-21 12:05 | disposition home or self-care (01) ==
LOC: MW.ED 08:56 → MW.MS 15:16
PROVIDERS: ADMIT Internal Medicine; ATTEND Internal Medicine
DX: S02.81XA Fracture of other specified skull and facial bones, right side, initial encounter for closed fracture (principal); N13.30 Unspecified hydronephrosis; W10.9XXA Fall (on) (from) unspecified stairs and steps, initial encounter
CPT/HCPCS: 70450; 70486; 71045; 72125; 72170; 74177; 76775; 80053; 80305; 81001; 85025; 85610; 90715; 96372; 96374; 96375; 96376; 99285; A9270; G0378; J0696; J1170; J1885; J2001; J2270; J2405; Q9967; 99283

== ENCOUNTER 2018-12-25 09:30 | Emergency (ER) | payer BC, OTHER ==
[2018-12-25] MEDS ORDERED: Sodium Chloride 0.9% 2.5 ML Syringe FLUSH PRN (09:51)
[2018-12-25] MEDS ORDERED: Sodium Chloride 0.9% 10 ML Syringe FLUSH PRN (09:51)
[2018-12-25] MEDS ORDERED: Sodium Chloride 0.9% 1,000 ML IV ONE ×2 (09:52→10:57)
[2018-12-25] MEDS ORDERED: Ondansetron 4 MG/2 ML SDV IVPUSH ONE (09:52)
[2018-12-25] MEDS ORDERED: Morphine 2 MG/ML Syringe IVPUSH ONE (09:52)
--- NOTE | 2018-12-25 09:57 | EDM.PDOC ---
ED HPI GENERAL MEDICAL PROBLEM - General Chief Complaint: Genitourinary Problem Stated Complaint: UTI Time Seen by Provider: 12/25/18 09:43 - History of Present Illness INITIAL COMMENTS - FREE TEXT/NARRATIVE: HISTORY AND PHYSICAL: History of present illness: The patient is a 28-year-old male with complaints of bilateral flank pain that started a few days ago. 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 He says that he has had multiple stents placed when he has had blockages and more recently he had a percutaneous nephrostomy tube placed on the left about 5 weeks ago at [facility] for blockage. 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 He said that he had the stent removed 2 weeks ago and he has been on antibiotics, the name of which she cannot remember, for the last one month. He says he finished his antibiotics yesterday. He says that the bilateral flank pain started several days ago and he was concerned because he usually only has issues on the left side. He says he had some dysuria that started last night while he was at work. He states he did have a fever of 1012 nights ago and he has had sweating but he doesn't recall if he had a temperature in the last 24 hours. He has no anterior abdominal pain no nausea or vomiting no diarrhea and no other systemic issues. He has no midline back pain and says that his discomfort is in the entire lumbar area bilaterally and not necessarily up in the flank area. He's concerned because of his complicated history and says that whenever he gets the discomfort usually there is a blockage or an infection. He denies any testicular pain or swelling and denies STD risks According to the computer the patient was seen here in March 2018 for similar pain and had a full workup including labs and CAT scan did not reveal any significant changes at that time Review of systems: As per history of present illness and below otherwise all systems reviewed and negative. Past medical history: As per history of present illness and as reviewed below otherwise noncontributory. Surgical history: As per history of present illness and as reviewed below otherwise noncontributory. Social history: No reported history of drug or alcohol abuse. Family history: As per history of present illness and as reviewed below otherwise noncontributory. Physical exam: General: Well-developed well-nourished man who is nontoxic and vital signs are noted by me. Easily in the ED without distress HEENT: Atraumatic, normocephalic, negative for conjunctival pallor or scleral icterus, mucous membranes moist, throat clear, neck supple, nontender, trachea midline. Lungs: Clear to auscultation, breath sounds equal bilaterally, chest nontender. Heart: S1S2, regular, negative for clicks, rubs, or JVD. Abdomen: Soft, nondistended, nontender. Negative for masses or hepatosplenomegaly. Negative for costovertebral tenderness. The site of the percutaneous nephrostomy tube on the left back is clean and dry without erythema and there is a small scab present and there is no specific swelling or tenderness in this region. Pelvis: Stable nontender. Genitourinary: Deferred. Rectal: Deferred. Extremities: Atraumatic, negative for cords or calf pain. Neurovascular unremarkable. Neuro: Awake, alert, oriented. Cranial nerves II through XII unremarkable. Cerebellum unremarkable. Motor and sensory unremarkable throughout. Exam nonfocal. Back: There are no midline step-offs tenderness defects of the thoracic or lumbar spine no specific CVA tenderness or palpable tenderness of the musculature and I cannot reproduce any of the discomfort with palpation of the flanks. Please see above abdomen exam for nephrostomy tube site evaluation Diagnostics: CBC CMP UA urine culture blood cultures lactic acid to skin of the abdomen and pelvis, chest x-ray Therapeutics: IV fluids morphine Zofran Levaquin 1100: I discussed all testing results with Dr. Interiano who was on-call or this patient's urologist at [facility] ( his regular urologist is Dr. Olmedo ). He feels that the urine test results are consistent with someone who has a stent in place and he is not concerned about the few white cells and trace esterase and a few bacteria. He is aware that a urine culture and blood cultures have been sent. He is also aware of the patient's BUN Woodruff gravity and clinical presentation of dehydration. The patient is currently finishing his second liter of fluids. Per Dr. Interiano, he was concerned about another source of the possible fever that the patient tested 5 he had 2 days ago. I again question this patient and he has no sore throat earache no chest pain no cough no shortness of breath and no other source for the fever. We will do a 1 view chest x-ray just to be complete and I have discussed giving the patient 1 dose of antibiotics here that will last him for 24 hours until preliminary cultures could be obtained. Dr. Interiano says he is comfortable with this as is the patient. The patient is aware that he has to call his own urologist first thing in the morning to have a dialogue about today's ED visit and his symptoms as this urologist may have a different opinion. The patient says that he has worked with Dr. Interiano in the past and he does not feel as comfortable with him as he does with his own urologist so again I stressed the need for this phone call first thing in the morning and we will notify him of any culture results as they evolve. Feel that the patient needs long-term antibiotics at this point and that we should await the culture results area Impression: Flank pain, Dysuria and subjective fever, left ureteral stent and history of Chronic UPJ stenosis left Definitive disposition and diagnosis as appropriate pending reevaluation and review of above. bilateral flank Pain Score (Numeric/FACES): 8 - Related Data Allergies Allergy/AdvReac Type Severity Reaction Status Date / Time No Known Allergies Allergy Verified 12/25/18 09:37 Home Meds: Home Meds oxyCODONE ER [OxyCONTIN] 10 mg PO Q12H PRN 12/25/18 [History] Past Medical History Genitourinary History: Reports: Hydronephrosis Other Genitourinary History: left kidney . - Infectious Disease History Infectious Disease History: Reports: Chicken Pox - Past Surgical History Male Surgical History: Reports: Ureteral Stent Social & Family History - Family History Family Medical History: Noncontributory - Tobacco Use Smoking Status *Q: Never Smoker - Caffeine Use Caffeine Use: Reports: Coffee - Recreational Drug Use Recreational Drug Use: No ED ROS GENERAL - Review of Systems Review Of Systems: ROS reveals no pertinent complaints other than HPI. ED EXAM, GENERAL - Physical Exam Exam: See Below (See dictation) Course - Vital Signs Last Recorded V/S: Last Vital Signs Temp 35.8 C 12/25/18 10:00 Pulse 102 H 12/25/18 09:37 Resp 18 12/25/18 09:37 BP 112/85 12/25/18 09:37 Pulse Ox 98 12/25/18 09:37 - Orders/Labs/Meds Orders: Active Orders 24 hr Category Date Time Status Chest 1V Frontal [CR] Stat Exams 12/25/18 11:10 Ordered CULTURE BLOOD [BC] Stat Lab 12/25/18 09:58 Received CULTURE BLOOD [BC] Stat Lab 12/25/18 10:05 Received CULTURE URINE [RM] Stat Lab 12/25/18 09:45 Received Levofloxacin/Dextrose 5%-Water [Levaquin in D5W 500 MG/ Med 12/25/18 11:11 Ordered 100 ML] 500 mg Premix Bag 1 bag IV ONETIME Sodium Chloride 0.9% [Normal Saline] 1,000 ml Med 12/25/18 10:57 Ordered IV STAT Sodium Chloride 0.9% [Saline Flush] Med 12/25/18 09:51 Active 10 ml FLUSH ASDIRECTED PRN Sodium Chloride 0.9% [Saline Flush] Med 12/25/18 09:51 Active 2.5 ml FLUSH ASDIRECTED PRN Blood Culture x2 Reflex Set [OM.PC] Stat Oth 12/25/18 09:51 Ordered Saline Lock Insert [OM.PC] Stat Oth 12/25/18 09:50 Ordered Medication Orders Sodium Chloride (Normal Saline) 1,000 mls @ 999 mls/hr IV STAT ONE Stop: 12/25/18 11:57 Last Admin: 12/25/18 11:00 Dose: 999 mls/hr Sodium Chloride (Saline Flush) 10 ml FLUSH ASDIRECTED PRN PRN Reason: Keep Vein Open Last Admin: 12/25/18 09:59 Dose: 10 ml Sodium Chloride (Saline Flush) 2.5 ml FLUSH ASDIRECTED PRN PRN Reason: Keep Vein Open Last Admin: 12/25/18 09:59 Dose: 2.5 ml Labs: Laboratory Tests 12/25/18 12/25/18 12/25/18 Range/Units 09:45 09:58 09:58 WBC 9.47 (4.0-11.0) K/uL RBC 4.89 (4.50-5.90) M/uL Hgb 14.6 (13.0-17.0) g/dL Hct 41.5 (38.0-50.0) % MCV 84.9 (80.0-98.0) fL MCH 29.9 (27.0-32.0) pg MCHC 35.2 (31.0-37.0) g/dL RDW Std Deviation 39.6 (28.0-62.0) fl RDW Coeff of Li 13 (11.0-15.0) % Plt Count 359 (150-400) K/uL MPV 9.70 (7.40-12.00) fL Neut % (Auto) 71.7 (48.0-80.0) % Lymph % (Auto) 19.6 (16.0-40.0) % [place] % (Auto) 8.4 (0.0-15.0) % Eos % (Auto) 0.1 (0.0-7.0) % Baso % (Auto) 0.2 (0.0-1.5) % Neut # (Auto) 6.8 H (1.4-5.7) K/uL Lymph # (Auto) 1.9 (0.6-2.4) K/uL [place] # (Auto) 0.8 (0.0-0.8) K/uL Eos # (Auto) 0.0 (0.0-0.7) K/uL Baso # (Auto) 0.0 (0.0-0.1) K/uL Nucleated RBC % 0.0 /100WBC Nucleated RBCs # 0 K/uL Lactate (0.20-2.00) mmol/L Sodium 138 (136-148) mmol/L Potassium 3.8 (3.5-5.1) mmol/L Chloride 100 (98-107) mmol/L Carbon Dioxide 24.8 (21.0-32.0) mmol/L BUN 24 H (7.0-18.0) mg/dL Creatinine 1.1 (0.8-1.3) mg/dL Est Cr Clr Drug Dosing 114.00 mL/min Estimated GFR (MDRD) > 60.0 ml/min Glucose 87 (74-106) mg/dL Calcium 9.7 (8.5-10.1) mg/dL Total Bilirubin 1.1 H (0.2-1.0) mg/dL AST 51 H (15-37) IU/L ALT 112 H (14-63) IU/L Alkaline Phosphatase 68 (46-116) U/L Total Protein 8.2 (6.4-8.2) g/dL Albumin 4.4 (3.4-5.0) g/dL Globulin 3.8 (2.6-4.0) g/dL Albumin/Globulin Ratio 1.2 (0.9-1.6) Urine Color DARK YELLOW Urine Appearance SLT CLOUDY Urine pH 6.0 (5.0-8.0) Ur Specific [place] >= 1.030 (1.001-1.035) Urine Protein >=300 H (NEGATIVE) mg/dL Urine Glucose (UA) NEGATIVE (NEGATIVE) mg/dL Urine Ketones 40 H (NEGATIVE) mg/dL Urine Occult Blood LARGE H (NEGATIVE) Urine Nitrite NEGATIVE (NEGATIVE) Urine Bilirubin SMALL H (NEGATIVE) Urine Ictotest NEGATIVE Urine Urobilinogen 0.2 (<2.0) EU/dL Ur Leukocyte Esterase TRACE H (NEGATIVE) Urine RBC 45-50 (0-2/HPF) Urine WBC 1-2 (0-5/HPF) Ur Epithelial Cells RARE (NONE-FEW) Urine Bacteria FEW (NEGATIVE) 12/25/18 Range/Units 09:58 WBC (4.0-11.0) K/uL RBC (4.50-5.90) M/uL Hgb (13.0-17.0) g/dL Hct (38.0-50.0) % MCV (80.0-98.0) fL MCH (27.0-32.0) pg MCHC (31.0-37.0) g/dL RDW Std Deviation (28.0-62.0) fl RDW Coeff of Li (11.0-15.0) % Plt Count (150-400) K/uL MPV (7.40-12.00) fL Neut % (Auto) (48.0-80.0) % Lymph % (Auto) (16.0-40.0) % [place] % (Auto) (0.0-15.0) % Eos % (Auto) (0.0-7.0) % Baso % (Auto) (0.0-1.5) % Neut # (Auto) (1.4-5.7) K/uL Lymph # (Auto) (0.6-2.4) K/uL [place] # (Auto) (0.0-0.8) K/uL Eos # (Auto) (0.0-0.7) K/uL Baso # (Auto) (0.0-0.1) K/uL Nucleated RBC % /100WBC Nucleated RBCs # K/uL Lactate 1.0 (0.20-2.00) mmol/L Sodium (136-148) mmol/L Potassium (3.5-5.1) mmol/L Chloride (98-107) mmol/L Carbon Dioxide (21.0-32.0) mmol/L BUN (7.0-18.0) mg/dL Creatinine (0.8-1.3) mg/dL Est Cr Clr Drug Dosing mL/min Estimated GFR (MDRD) ml/min Glucose (74-106) mg/dL Calcium (8.5-10.1) mg/dL Total Bilirubin (0.2-1.0) mg/dL AST (15-37) IU/L ALT (14-63) IU/L Alkaline Phosphatase (46-116) U/L Total Protein (6.4-8.2) g/dL Albumin (3.4-5.0) g/dL Globulin (2.6-4.0) g/dL Albumin/Globulin Ratio (0.9-1.6) Urine Color Urine Appearance Urine pH (5.0-8.0) Ur Specific [place] (1.001-1.035) Urine Protein (NEGATIVE) mg/dL Urine Glucose (UA) (NEGATIVE) mg/dL Urine Ketones (NEGATIVE) mg/dL Urine Occult Blood (NEGATIVE) Urine Nitrite (NEGATIVE) Urine Bilirubin (NEGATIVE) Urine Ictotest Urine Urobilinogen (<2.0) EU/dL Ur Leukocyte Esterase (NEGATIVE) Urine RBC (0-2/HPF) Urine WBC (0-5/HPF) Ur Epithelial Cells (NONE-FEW) Urine Bacteria (NEGATIVE) Meds: Medications Generic Name Dose Route Start Last Admin Trade Name Freq PRN Reason Stop Dose Admin Sodium Chloride 1,000 mls @ 999 mls/hr 12/25/18 10:57 12/25/18 11:00 Normal Saline IV 12/25/18 11:57 999 mls/hr STAT ONE Administration Sodium Chloride 10 ml 12/25/18 09:51 12/25/18 09:59 Saline Flush FLUSH 10 ml ASDIRECTED PRN Administration Keep Vein Open Sodium Chloride 2.5 ml 12/25/18 09:51 12/25/18 09:59 Saline Flush FLUSH 2.5 ml ASDIRECTED PRN Administration Keep Vein Open Discontinued Medications Generic Name Dose Route Start Last Admin Trade Name Shayne PRN Reason Stop Dose Admin Sodium Chloride 1,000 mls @ 999 mls/hr 12/25/18 09:52 12/25/18 09:59 Normal Saline IV 12/25/18 10:52 999 mls/hr STAT ONE Administration Morphine Sulfate 4 mg 12/25/18 09:52 12/25/18 09:59 Morphine IVPUSH 12/25/18 09:53 4 mg ONETIME ONE Administration Ondansetron HCl 4 mg 12/25/18 09:52 12/25/18 09:59 Zofran IVPUSH 12/25/18 09:53 4 mg ONETIME ONE Administration Departure - Departure Time of Disposition: 11:14 Disposition: Home, Self-Care 01 Condition: Good Clinical Impression: Flank pain, History of ureter stent - Discharge Information Referrals: PCP,Unknown [Primary Care Provider] - Forms: ED Department Discharge Additional Instructions: The following information is given to patients seen in the emergency department who are being discharged to home. This information is to outline your options for follow-up care. We provide all patients seen in our emergency department with a follow-up referral. The need for follow-up, as well as the timing and circumstances, are variable depending upon the specifics of your emergency department visit. If you don't have a primary care physician on staff, we will provide you with a referral. We always advise you to contact your personal physician following an emergency department visit to inform them of the circumstance of the visit and for follow-up with them and/or the need for any referrals to a consulting specialist. The emergency department will also refer you to a specialist when appropriate. This referral assures that you have the opportunity for followup care with a specialist. All of these measure are taken in an effort to provide you with optimal care, which includes your followup. Under all circumstances we always encourage you to contact your private physician who remains a resource for coordinating your care. When calling for followup care, please make the office aware that this follow-up is from your recent emergency room visit. If for any reason you are refused follow-up, please contact the [facility] emergency department at and ask to speak to the emergency department charge nurse. [facility]-U[facility] [address] [place] [id number] [facility] Primary care- Internal Medicine and Family [address] [address] Please call your urologist at [facility] first thing tomorrow morning and discuss current events and today's visit in the ED. Please make sure he is aware that we did send urine and blood for cultures and we will notify you of any positive test results. Please push hydration and avoid caffeinated products and try to avoid the heat over the next few days. Continue to monitor your temperature with a thermometer documenting any temperatures greater than 100.5. Use [id number] Tylenol for fevers. Return to ER as needed and as discussed - My Orders Last 24 Hours: My Active Orders 12/25/18 09:45 CULTURE URINE [RM] Stat 12/25/18 09:50 Saline Lock Insert [OM.PC] Stat 12/25/18 09:51 Sodium Chloride 0.9% [Saline Flush] 10 ml FLUSH ASDIRECTED PRN Sodium Chloride 0.9% [Saline Flush] 2.5 ml FLUSH ASDIRECTED PRN Blood Culture x2 Reflex Set [OM.PC] Stat 12/25/18 09:58 CULTURE BLOOD [BC] Stat 12/25/18 10:05 CULTURE BLOOD [BC] Stat 12/25/18 10:57 Sodium Chloride 0.9% [Normal Saline] 1,000 ml IV STAT 12/25/18 11:10 Chest 1V Frontal [CR] Stat 12/25/18 11:11 Levofloxacin/Dextrose 5%-Water [Levaquin in D5W 500 MG/100 ML] 500 mg Premix Bag 1 bag IV ONETIME - Assessment/Plan Last 24 Hours: My Active Orders 12/25/18 09:45 CULTURE URINE [RM] Stat 12/25/18 09:50 Saline Lock Insert [OM.PC] Stat 12/25/18 09:51 Sodium Chloride 0.9% [Saline Flush] 10 ml FLUSH ASDIRECTED PRN Sodium Chloride 0.9% [Saline Flush] 2.5 ml FLUSH ASDIRECTED PRN Blood Culture x2 Reflex Set [OM.PC] Stat 12/25/18 09:58 CULTURE BLOOD [BC] Stat 12/25/18 10:05 CULTURE BLOOD [BC] Stat 12/25/18 10:57 Sodium Chloride 0.9% [Normal Saline] 1,000 ml IV STAT 12/25/18 11:10 Chest 1V Frontal [CR] Stat 12/25/18 11:11 Levofloxacin/Dextrose 5%-Water [Levaquin in D5W 500 MG/100 ML] 500 mg Premix Bag 1 bag IV ONETIME
[2018-12-25 10:40] LABS: BLOOD UREA NITROGEN,BUN 24 mg/dL (7.0-18.0); CARBON DIOXIDE,CO2 24.8 mmol/L (21.0-32.0); CHLORIDE,CL 100 mmol/L (98-107); GLUCOSE RANDOM 87 mg/dL (74-106); POTASSIUM,K 3.8 mmol/L (3.5-5.1); SODIUM,NA 138 mmol/L (136-148)
--- NOTE | 2018-12-25 10:41 | CT ---
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 Technique: Multiple contiguous axial images were obtained from the lung bases through the symphysis pubis without intravenous contrast enhancement. Please note that all CT scans at this facility use dose modulation, iterative reconstruction, and/or weight-based dosing when appropriate to reduce radiation dose to as low as reasonably achievable. Comparison: April 08, 2018. Findings: The lung bases are clear. No infiltrate, pleural effusion or pneumothorax is identified. Her heart is normal in size. No pericardial effusion is identified. The unenhanced liver, spleen, pancreas, gallbladder, adrenals, and right kidney are normal. No intrahepatic biliary ductal dilatation is identified. No hydronephrosis is seen on the right. In the pelvis, the urinary bladder is normal. The prostate gland is normal. Left hydronephrosis is identified. A nonobstructing 2 millimeter cortical calculus is identified in the interpolar region of the left kidney. Surgical vince are identified in the left perinephric region. A left ureteral stent is identified. The proximal pigtail is in the left renal pelvis. The inferior pigtail is in the very superior aspect of the bladder. Impression: Left hydronephrosis with a left ureteral stent. No nephrostomy tube is identified. Please note that all CT scans at this facility use dose modulation, iterative reconstruction, and/or weight-based dosing when appropriate to reduce radiation dose to as low as reasonably achievable. Dictated by Shonda Oakes MD @ Dec 25 2018 10:30AM Signed by Dr. Shonda Oakes @ Dec 25 2018 10:39AM
[2018-12-25] MEDS ORDERED: Levofloxacin/Dextrose 5%-Water 500 MG in Premix Bag 1 BAG IV ONE (11:11)
[2018-12-25] MEDS ORDERED: Acetaminophen/HYDROcodone 325-5 MG Tab PO ONE (11:53)
--- NOTE | 2018-12-25 11:53 | CR ---
Indication: Fever. Technique: Single-view of the chest was obtained. Comparison: February 20, 2018 Findings: The heart is normal in size. The lungs are clear. No infiltrate, pleural effusion, or pneumothorax is identified. Impression: No acute cardiopulmonary process. Dictated by Shonda Oakes MD @ Dec 25 2018 11:51AM Signed by Dr. Shonda Oakes @ Dec 25 2018 11:51AM
== END 2018-12-25 12:47 | disposition home or self-care (01) ==
LOC: MW.ED 09:30
DX: R10.9 Unspecified abdominal pain (principal); R30.0 Dysuria; R50.9 Fever, unspecified; Z96.0 Presence of urogenital implants; Z87.448 Personal history of other diseases of urinary system; Z79.899 Other long term (current) drug therapy
CPT/HCPCS: 71045; 74176; 80053; 81001; 83605; 85025; 87040; 87086; 96361; 96365; 96375; 99284; J1956; J2270; J2405; J7040

== ENCOUNTER 2018-12-28 09:34 | Emergency (ER) | payer OTHER ==
--- NOTE | 2018-12-28 09:43 | EDM.PDOC ---
ED HPI GENERAL MEDICAL PROBLEM - General Stated Complaint: LEFT LOW BACK PAIN Time Seen by Provider: 12/28/18 09:35 Source of Information: Reports: Patient History Limitations: Reports: No Limitations - History of Present Illness INITIAL COMMENTS - FREE TEXT/NARRATIVE: HISTORY AND PHYSICAL: History of present illness: Patient is a 28-year-old male with complaints of bilateral flank pain. 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 He has had multiple stents placed; most recently had a percutaneous nephrostomy tube placed on the left approx 5 weeks ago at [facility]. Stat was removed 2 weeks ago and he has been on antibiotics for the last one month. Patient was last seen in our emergency room on 12/25/18: He had a full work up while here and Dr Interiano (patient's surgical scheduler) was consulted. Findings were normal; he received IV Levaquin for a few WBC noted in his urine - which Dr Interiano was not concerned about. He was discharged to home to follow up with urology. Patient does have an appointment today with Dr Weinberg at 1pm; but states he is in too much pain to wait. He is out of his oxycodones. He did attempt to get into the urologist sooner than his afternoon appointment and they encouraged him to come for evaluation if he was not able to wait. Review of systems: As per history of present illness and below otherwise all systems reviewed and negative. Past medical history: As per history of present illness and as reviewed below otherwise noncontributory. Surgical history: As per history of present illness and as reviewed below otherwise noncontributory. Social history: See social history for further information Family history: As per history of present illness and as reviewed below otherwise noncontributory. Physical exam: General: Well-developed and well-nourished 28-year-old male. Alert and oriented. Nontoxic appearing and in no acute distress. HEENT: Atraumatic, normocephalic, pupils equal and reactive bilaterally, negative for conjunctival pallor or scleral icterus, mucous membranes moist, trachea midline. No drooling or trismus noted. No meningeal signs. No hot potato voice noted. Lungs: Clear to auscultation, breath sounds equal bilaterally. Heart: S1S2, regular rate and rhythm without overt murmur Abdomen: Soft, nondistended, nontender. Negative for masses or hepatosplenomegaly. Bilateral costovertebral tenderness. Pelvis: Stable nontender. Genitourinary: Deferred. Rectal: Deferred. Skin: Intact, warm, dry. No lesions or rashes noted. Extremities: Atraumatic, moves all extremities per self without difficulty or deficits, ambulatory. Neurovascular unremarkable. Neuro: Awake, alert, oriented. Cranial nerves II through XII unremarkable. Cerebellum unremarkable. Motor and sensory unremarkable throughout. Exam nonfocal. Notes: From patient's 12/25/2018 ER visit, he had blood cultures and urine which showed no growth. Patient was concerned at that time that he needed to be admitted for pain control and infection. Lab work showed no significant findings. Dr Weinberg was consult on this case. He confirmed that this patient does have an appointment at 1 PM this afternoon. Patient had a CT on 12/25/2018; Dr Weinberg did not want another CT done at this time. Encouraged him to keep his appointment for further care and management. Vital signs remain stable. Supportive care measures were reviewed and discussed. Voices understanding and is agreeable to plan of care. Denies any further questions or concerns at this time. Diagnostics: CBC, CMP, UA Therapeutics: Toradol IM, [place] Prescription: None Impression: Flank pain History of uretal stents Plan: 1. Keep your appointment with Dr Weinberg for 1pm today 2. Return to the ED as needed and as discussed. Definitive disposition and diagnosis as appropriate pending reevaluation and review of above. Duration: Chronic Left Flank Pain Score (Numeric/FACES): 10 - Related Data Allergies Allergy/AdvReac Type Severity Reaction Status Date / Time No Known Allergies Allergy Verified 12/28/18 09:42 Home Meds: Home Meds . [No Known Home Meds] 12/28/18 [History] Past Medical History Genitourinary History: Reports: Hydronephrosis Other Genitourinary History: left kidney . - Infectious Disease History Infectious Disease History: Reports: Chicken Pox - Past Surgical History Male Surgical History: Reports: Ureteral Stent Social & Family History - Family History Family Medical History: Noncontributory - Caffeine Use Caffeine Use: Reports: Coffee ED ROS GENERAL - Review of Systems Review Of Systems: ROS reveals no pertinent complaints other than HPI. ED EXAM, RENAL/ - Physical Exam Exam: See Below (See dictation) Course - Vital Signs Last Recorded V/S: Last Vital Signs Temp 96.9 F 12/28/18 09:40 Pulse 62 12/28/18 09:40 Resp 18 12/28/18 09:40 BP 129/85 12/28/18 09:40 Pulse Ox 99 12/28/18 09:40 - Orders/Labs/Meds Labs: Laboratory Tests 12/28/18 12/28/18 12/28/18 Range/Units 09:59 10:06 10:06 WBC 4.49 (4.0-11.0) K/uL RBC 4.74 (4.50-5.90) M/uL Hgb 14.1 (13.0-17.0) g/dL Hct 40.9 (38.0-50.0) % MCV 86.3 (80.0-98.0) fL MCH 29.7 (27.0-32.0) pg MCHC 34.5 (31.0-37.0) g/dL RDW Std Deviation 41.3 (28.0-62.0) fl RDW Coeff of Li 13 (11.0-15.0) % Plt Count 310 (150-400) K/uL MPV 9.60 (7.40-12.00) fL Neut % (Auto) 52.2 (48.0-80.0) % Lymph % (Auto) 38.3 (16.0-40.0) % [place] % (Auto) 7.8 (0.0-15.0) % Eos % (Auto) 1.3 (0.0-7.0) % Baso % (Auto) 0.4 (0.0-1.5) % Neut # (Auto) 2.3 (1.4-5.7) K/uL Lymph # (Auto) 1.7 (0.6-2.4) K/uL [place] # (Auto) 0.4 (0.0-0.8) K/uL Eos # (Auto) 0.1 (0.0-0.7) K/uL Baso # (Auto) 0.0 (0.0-0.1) K/uL Nucleated RBC % 0.0 /100WBC Nucleated RBCs # 0 K/uL Sodium 142 (136-148) mmol/L Potassium 4.3 (3.5-5.1) mmol/L Chloride 105 (98-107) mmol/L Carbon Dioxide 29.4 (21.0-32.0) mmol/L BUN 11 (7.0-18.0) mg/dL Creatinine 0.9 (0.8-1.3) mg/dL Est Cr Clr Drug Dosing 139.33 mL/min Estimated GFR (MDRD) > 60.0 ml/min Glucose 100 (74-106) mg/dL Calcium 9.4 (8.5-10.1) mg/dL Total Bilirubin 0.7 (0.2-1.0) mg/dL AST 33 (15-37) IU/L ALT 90 H (14-63) IU/L Alkaline Phosphatase 51 (46-116) U/L Total Protein 7.1 (6.4-8.2) g/dL Albumin 3.8 (3.4-5.0) g/dL Globulin 3.3 (2.6-4.0) g/dL Albumin/Globulin Ratio 1.2 (0.9-1.6) Urine Color YELLOW Urine Appearance SLT CLOUDY Urine pH 6.5 (5.0-8.0) Ur Specific [place] 1.010 (1.001-1.035) Urine Protein 100 H (NEGATIVE) mg/dL Urine Glucose (UA) NEGATIVE (NEGATIVE) mg/dL Urine Ketones NEGATIVE (NEGATIVE) mg/dL Urine Occult Blood LARGE H (NEGATIVE) Urine Nitrite NEGATIVE (NEGATIVE) Urine Bilirubin NEGATIVE (NEGATIVE) Urine Urobilinogen 0.2 (<2.0) EU/dL Ur Leukocyte Esterase NEGATIVE (NEGATIVE) Urine RBC 50-60 (0-2/HPF) Urine WBC 1-4 (0-5/HPF) Ur Epithelial Cells OCCASIONAL (NONE-FEW) Urine Bacteria FEW (NEGATIVE) Urine Mucus LIGHT (NONE-MOD) Meds: Medications Discontinued Medications Generic Name Dose Route Start Last Admin Trade Name Freq PRN Reason Stop Dose Admin Hydrocodone Bitart/Acetaminophen 1 tab 12/28/18 10:23 12/28/18 10:37 [place] 325-5 Mg PO 12/28/18 10:24 1 tab ONETIME ONE Administration Ketorolac Tromethamine 60 mg 12/28/18 09:54 12/28/18 10:03 Toradol IM 12/28/18 09:55 60 mg ONETIME ONE Administration Departure - Departure Time of Disposition: 10:39 Disposition: Home, Self-Care 01 Clinical Impression: History of ureter stent, Flank pain - Discharge Information Instructions: Flank Pain, Adult, [id number] Referrals: PCP,None [Primary Care Provider] - Additional Instructions: The following information is given to patients seen in the emergency department who are being discharged to home. This information is to outline your options for follow-up care. We provide all patients seen in our emergency department with a follow-up referral. The need for follow-up, as well as the timing and circumstances, are variable depending upon the specifics of your emergency department visit. If you don't have a primary care physician on staff, we will provide you with a referral. We always advise you to contact your personal physician following an emergency department visit to inform them of the circumstance of the visit and for follow-up with them and/or the need for any referrals to a consulting specialist. The emergency department will also refer you to a specialist when appropriate. This referral assures that you have the opportunity for follow-up care with a specialist. All of these measure are taken in an effort to provide you with optimal care, which includes your follow-up. Under all circumstances we always encourage you to contact your private physician who remains a resource for coordinating your care. When calling for follow-up care, please make the office aware that this follow-up is from your recent emergency room visit. If for any reason you are refused follow-up, please contact the [facility] Emergency Department at and asked to speak to the emergency department charge nurse. [facility] Specialty Care - Urology [address] [place] [id number] 1. Keep your appointment with Dr Weinberg for 1pm today 2. Return to the ED as needed and as discussed.
[2018-12-28] MEDS ORDERED: Ketorolac 60 MG/2 ML SDV IM ONE (09:54)
[2018-12-28] MEDS ORDERED: Acetaminophen/HYDROcodone 325-5 MG Tab PO ONE (10:23)
[2018-12-28 10:37] LABS: BLOOD UREA NITROGEN,BUN 11 mg/dL (7.0-18.0); CARBON DIOXIDE,CO2 29.4 mmol/L (21.0-32.0); CHLORIDE,CL 105 mmol/L (98-107); GLUCOSE RANDOM 100 mg/dL (74-106); POTASSIUM,K 4.3 mmol/L (3.5-5.1); SODIUM,NA 142 mmol/L (136-148)
== END 2018-12-28 10:44 | disposition home or self-care (01) ==
LOC: MW.ED 09:34
DX: R10.9 Unspecified abdominal pain (principal); Z96.0 Presence of urogenital implants
CPT/HCPCS: 36415; 80053; 81001; 85025; 96372; 99283; A9270; J1885